=== PATIENT | male | born 1945 | race Caucasian/White ===

== ENCOUNTER 2024-10-26 16:17 | Outpatient (CLI) | payer MEDICAID, SELFPAY | END 2024-10-26 16:18 | disposition home or self-care (01) | LOC: AMB 10-30 11:18 | PROVIDERS: Visit Provider Family Medicine | DX: A41.9 Sepsis, unspecified organism (principal); I95.9 Hypotension, unspecified; J18.9 Pneumonia, unspecified organism; R09.02 Hypoxemia | CPT/HCPCS: A0425; A0434 ==